=== PATIENT | male | born 1990 | race Caucasian/White ===

== ENCOUNTER → 2019-06-21 14:50 | Outpatient (CLI) | payer OTHER, SELFPAY ==
[2019-06-21 18:15] LABS: Chlamydia Trachomatis by PCR Negative (Negative); Neisserai gonorrhoeae by PCR Negative (Negative); Probe Check PASS; Sample Adequacy Control PASS; Specimen Processing Control PASS
[2019-06-21 18:16] LABS: Probe Check PASS; Sample Adequacy Control PASS; Specimen Processing Control PASS; Trichomonas Vag DNA by PCR Negative (Negative)
== END ==
PROVIDERS: Family Provider Pediatrics; PCP Pediatrics; Referring Provider Family Medicine; Visit Provider Family Medicine
DX: R30.0 Dysuria (principal); Z20.2 Contact with and (suspected) exposure to infections with a predominantly sexual mode of transmission
CPT/HCPCS: 87086; 87088; 87210; 87491; 87591; 87661

== ENCOUNTER → 2019-07-08 18:33 | Outpatient (CLI) | payer OTHER, SELFPAY | PROVIDERS: Family Provider Family Medicine; PCP Family Medicine; Referring Provider Nurse Practitioner Adult Health; Visit Provider Nurse Practitioner Adult Health | DX: R30.0 Dysuria (principal) ==

== ENCOUNTER → 2019-07-23 14:12 | Outpatient (CLI) | payer OTHER, SELFPAY ==
--- NOTE | 2019-07-23 14:25 | US_ITS ---
STUDY: SCROTUM ULTRASOUND REASON FOR EXAM: Male, 28 years old. Testicular lump. TECHNIQUE: Ultrasound evaluation of the scrotum was performed with color Doppler and static valenzuela-scale imaging. COMPARISON: None. FINDINGS: RIGHT TESTICLE INTRATESTICULAR: There is a normal size of the right testicle. The right testicle measures 4.6 x 3.0 x 2.2 cm. There is a homogenous echotexture. There is normal arterial and normal venous vascularity. There is no demonstrated right testicular mass or cyst. EXTRATESTICULAR: The epididymis is normal in size. The epididymis head measures 0.8 x 1.2 x 1.1 cm. There is normal vascularity of the epididymis. There is no demonstrated epididymal cystic structure. There is a small hydrocele. There is no demonstrated varicocele. There is no demonstrated extratesticular mass or cyst. The right testicular wall measures 0.3 cm. LEFT TESTICLE INTRATESTICULAR: There is a normal size of the left testicle. The left testicle measures 4.4 x 2.9 x 2.3 cm. There is a homogenous echotexture. There is normal arterial and normal venous vascularity. There is no demonstrated left testicular mass or cyst. The left testicular wall measures 0.4 cm. EXTRATESTICULAR: The epididymis is normal in size. The epididymis head measures 0.7 x 1.3 x 0.9 cm. There is normal vascularity of the epididymis. There is no demonstrated epididymal cystic structure. There is a small hydrocele. There is no demonstrated varicocele. There is no demonstrated extratesticular mass or cyst. US/Testicular with Arterial Flow IMPRESSION: Mild bilateral small hydroceles. No evidence of intratesticular mass. Normal symmetrical color flow within the testis. Electronically Signed: Allyson Warner MD at 4:52 EST , Service support ,
== END ==
PROVIDERS: Family Provider Family Medicine; PCP Family Medicine; Referring Provider Family Medicine; Visit Provider Family Medicine
DX: N43.3 Hydrocele, unspecified (principal)
CPT/HCPCS: 76870; 93976

== ENCOUNTER 2019-12-12 18:42 | Emergency (ER) | payer OTHER, SELFPAY ==
[2019-12-12] VITALS (8 sets, daily range): BP systolic 125–156; BP diastolic 66–107; PULSE 72–115; RESP 16–22; TEMP 36.6–36.9; O2SAT 93–99; BMI 26.6
--- NOTE | 2019-12-12 19:11 | ED.DCSUM_ITS ---
History of Present Illness Chief Complaint: Foreign Body Informant: Patient Onset: Hours - 1 Context: Sudden Onset - swallowing a piece of steak Timing: Continuous Quality: stuck [facility] Current Severity: Moderate Maximum Severity: Moderate Worsened by: trying to drink -- vomits Relieved by: nothing. tried cola. Narrative: Patient has had food feel like it got stuck in his esophagus on the way down, and the area that is affected now, in the past but he has never had anything stuck to the point where it would not eventually pass, like he has today while he was eating steak. The last time he vomited he saw a slight streak of blood. He has had nosebleeds off and on this winter. Past Medical History - Allergies and Home Meds Allergies/Adverse Reactions: Allergies Penicillins [PCN] Allergy (Verified 12/12/19 18:47) Hives Sulfa (Sulfonamide Antibiotics) Allergy (Verified 12/12/19 18:47) Hives Primary Care Physician: Dereck Roy MD [STAFF PHYSICIAN] - (as directed) Past Medical History: None Smoking Status: Never smoker Review of Systems General: Denies: Chills, Fever, Sweats ENT: Denies: Rhinorrhea, Sore throat Cardiovascular: Reports: Chest pain - See HPI Respiratory: Denies: Dyspnea, Cough, Dyspnea on exertion Gastrointestinal: Reports: Vomiting. Denies: Nausea, Diarrhea Skin: Denies: Rash, Wounds Neurological: Denies: Headache, Weakness, Numbness Physical Exam Vital Signs/Narrative: Vital Signs Temp Pulse Resp BP Pulse Ox 12/12/19 18:43 97.8 F 115 H 20 H 156/107 H 99 Inital Vital Signs reviewed: Yes General: Well nourished, Well developed, No Acute Distress Head: Normocephalic, Atraumatic Eyes: Perrl, EOMI ENT: Moist mucous membranes, No rhinorrhea, - - Posterior oropharynx clear. There is a spot of blood at Kesselbach's plexus in the right naris, with evidence of recent bleeding but nothing active. Left naris is clear. Neck: Supple, Nontender Cardiovascular: Regular rate, Regular rhythm, No murmurs Respiratory: No distress, CTA bilaterally, Chest nontender Abdomen: Soft, Nontender, Nondistended, Normal bowel sounds Skin: Normal color, No rash, No Trauma Neurological: Alert, Oriented x3, Cranial nerves II-XII grossly intact, Normal Strength, Normal Sensation, Normal Gait Psychological: Normal affect, Normal Mood Diagnostic/Tx/Re-eval Clinical Impression(s) from Imaging Studies Chest X-Ray 12/12/19 20:05 IMPRESSION: Normal x-ray examination of the chest. Electronically Signed: Beckie Kaplan MD at 20:33 EDT Tel , Service support , - Medical Decision Making Patient was given cola to try to drink by the nurses prior to my evaluation, he vomited it up promptly. There was no blood in his emesis. I reassured him that he appears to have a small area in the right naris that was probably the source of blood, and there is no active bleeding there. He was given a tissue to put in his nose to help apply pressure for now. He was treated with glucagon 1 mg IM, and observed for a period of time since his airway is patent and he is in no distress, tolerating this relatively well. However, he failed this and continued to vomit when attempting to drink carbonated beverage, and continuing to feel the sensation of foreign body in his esophagus in the same place. The surgeon on-call for unassigned Dr. Stevens does not do endoscopy. Discussed with Dr. Roy. He preferred to do the endoscopy in the operating room, which was arranged and the patient was taken to the operating room suite after placing an IV and starting some fluid. His chest x-ray was unremarkable. ED Disposition - Plan for ED Patient: Diagnosis: Esophageal foreign body Instructions: ED Foreign Body Esophageal Rslv Referrals: Dereck Roy MD [STAFF PHYSICIAN] - (as directed)
[2019-12-12] MEDS: Glucagon 1 MG/ML Syringe IM (19:18)
--- NOTE | 2019-12-12 20:05 | RAD_ITS ---
STUDY: X-RAY CHEST REASON FOR EXAM: Male, 29 years old. STEAK CAUGHT IN THROAT. Difficulty managing saliva. UNABLE TO DRINK THE COLA TECHNIQUE: Portable chest. COMPARISON: None. FINDINGS: The lungs are clear and expanded. There is no demonstrated pleural abnormality. Normal size heart. Normal mediastinum and shankar. Normal visualized pulmonary arteries. Normal visualized aortic arch and descending thoracic aorta. Normal visualized thoracic spine. Normal visualized ribs, clavicles, and shoulders. There is no demonstrated abnormality of the visualized soft tissue structures of the upper abdomen. RAD/Chest 1 View (Portable) IMPRESSION: Normal x-ray examination of the chest. Electronically Signed: Beckie Kaplan MD at 20:33 EDT Tel , Service support ,
--- NOTE | 2019-12-12 21:31 | HP.PCM_ITS ---
Problem List (1) Esophageal foreign body Status: Acute Qualifiers: Encounter type: initial encounter Qualified Code(s): T18.108A - Unspecified foreign body in esophagus causing other injury, initial encounter Surgical / Procedure Criteria Criteria Note: On 11/30/2019 the [place] Department of Health ([facility]) Public Order signed by [facility] Director Maeve Payne M.D., regarding the Management of Non-Essential Surgeries and Procedures for the purpose of preserving Personal Protective Equipment (PPE) and critical hospital capacity and resources within [place] went into effect as of 12/01/2019 at 5:00PM. According to the [facility] Public Order: This action will remain in full force and effect until the State of Emergency declared by the Governor no longer exists or the Director of the [facility] rescinds or modifies this Order. This [facility] order stated all non-essential or elective surgeries and procedures that utilize PPE should be delayed unless there is undue risk to the current or future health of a patient. After reviewing the aforementioned [facility] Public Order and the patients clinical case, I have determined that the scheduled procedure meets the criteria to go forward. Identified Procedure Criteria: Threat of permanent dysfunction of an extremity or organ system - Patient has a foreign body in his esophagus History of Present Illness Date of Admission: 12/12/19 The patient is a 29 year old M Patient has had food feel like it got stuck in his esophagus on the way down, and the area that is affected now, in the past but he has never had anything stuck to the point where it would not eventually pass, like he has today while he was eating steak. The last time he vomited he saw a slight streak of blood. He has had nosebleeds off and on this winter. Past Medical History Allergies Penicillins [PCN] Allergy (Verified 12/12/19 18:47) Hives Sulfa (Sulfonamide Antibiotics) Allergy (Verified 12/12/19 18:47) Hives Home Medications: Ambulatory Orders Medication Instructions Recorded Multivitamin [Multiple Vitamins] 1 ea PO DAILY 12/12/19 Smoking Status: Never smoker - *Family History Maternal History Items: No pertinent history Review of Systems Constitutional: Denies: Chills, Fever, Weight Change Cardiovascular: Denies: Chest Pain, Chest Pressure, Chest Tightness, Palpitations Respiratory: Denies: Cough, Hemoptysis, Shortness of breath at rest, Shortness of breath upon exertion, Wheezing Gastrointestinal: Denies: Abdominal Pain, Constipation, Diarrhea, Hematemesis, Nausea, Melena, Vomiting VTE Information - Inpt Only VTE Present on Admission: No VTE Mechan Device Prophylaxis: None VTE Pharm Prophylaxis ordered?: No Reason prophylaxis not ordered:: Treatment Not Indicated - Physical Exam Vitals/I&O's: Vital Signs Temp Pulse Resp BP Pulse Ox 97.8 F 82 20 H 138/93 H 98 12/12/19 18:43 12/12/19 20:53 12/12/19 20:53 12/12/19 20:53 12/12/19 20:53 Oxygen Flow Rate (L/min) 2 Oxygen Delivery Method Nasal Cannula Weight: 191 lb Body Mass Index (BMI) 26.6 Lungs: Clear to auscultation Cardiovascular: Regular rate, Regular Rhythm, No murmurs Abdomen: Bowel Sounds Present, Soft, Non Tender, Non-Distended Assessment/Plan All Active Problems Esophageal foreign body (Acute) Plan will be to perform an upper endoscopy on the patient. Hopefully we will be able to push this piece of deer meat through into his stomach. Wrist benefits include bleeding infection possible injury to the esophagus have been reviewed with the patient the patient agrees to proceed.
--- NOTE | 2019-12-12 21:38 | OP.EGD_ITS ---
Patient Name: Leonidas Lechuga Procedure Date: 12/12/2019 9:11 PM Date of : 1990 Age: 29 Procedure: Upper GI endoscopy Indications: Foreign body in the esophagus Providers: Dereck Roy MD Medicines: See the Anesthesia note for documentation of the administered medications Patient Profile: This is a 29 year old male. Refer to note in patient chart for documentation of history and physical. Complications: No immediate complications. Procedure: Pre-Anesthesia Assessment: - Prior to the procedure, a History and Physical was performed, and patient medications and allergies were reviewed. The patient's tolerance of previous anesthesia was also reviewed. The risks and benefits of the procedure and the sedation options and risks were discussed with the patient. All questions were answered, and informed consent was obtained. Prior Anticoagulants: The patient has taken no previous anticoagulant or antiplatelet agents. ASA Grade Assessment: II - A patient with mild systemic disease. After reviewing the risks and benefits, the patient was deemed in satisfactory condition to undergo the procedure. After obtaining informed consent, the endoscope was passed under direct vision. Throughout the procedure, the patient's blood pressure, pulse, and oxygen saturations were monitored continuously. The gastroscope was introduced through the mouth, and advanced to the second part of duodenum. The upper GI endoscopy was accomplished without difficulty. The patient tolerated the procedure well. Scope In: 9:26:31 PM Scope Out: 9:28:10 PM Total Procedure Duration Time 0 hours 1 minute 39 seconds Findings: The examined esophagus was normal. With just air being compressed into the esophagus this food bolus passed easily into the stomach with no injury to the distal esophagus. A large amount of food (residue) was found in the entire examined stomach. The examined duodenum was normal. No biopsies or other specimens were collected for this exam. Impression: - Normal esophagus. The mucosa looked normal and there was no signs of any injury to the distal esophagus. - A large amount of food (residue) in the stomach. - Normal examined duodenum. No specimens collected. Recommendation: - Discharge patient to home. - Resume previous diet. - Continue present medications. - Await pathology results. - Repeat upper endoscopy (date not yet determined) for surveillance. - Return to primary care physician (date not yet determined). Procedure Code(s): --- Professional --- 59963, Esophagogastroduodenoscopy, flexible, transoral; diagnostic, including collection of specimen(s) by brushing or washing, when performed (separate procedure) Diagnosis Code(s): --- Professional --- T18.108A, Unspecified foreign body in esophagus causing other injury, initial encounter CPT copyright 2017 [employer]. All rights reserved. The codes documented in this report are preliminary and upon data coder operator review may be revised to meet current compliance requirements. MD Dereck Rodriguez MD 12/12/2019 9:37:51 PM This report has been signed electronically. Number of Addenda: 0 Note Initiated On: 12/12/2019 9:11 PM
--- NOTE | 2019-12-12 21:38 | OP.CCLET_ITS ---
12/12/2019 Randy Nguyen Md Re : Upper GI endoscopy procedure for Leonidas Lechuga Dear Wendy This procedure was performed on Thursday, December 12, 2019. My impressions and recommendations are as follows: Impressions : - Normal esophagus. The mucosa looked normal and there was no signs of any injury to the distal esophagus. - A large amount of food (residue) in the stomach. - Normal examined duodenum. No specimens collected. Recommendations : - Discharge patient to home. - Resume previous diet. - Continue present medications. - Await pathology results. - Repeat upper endoscopy (date not yet determined) for surveillance. - Return to primary care physician (date not yet determined). My findings are described in the full procedure note, which is enclosed. If I can be of further assistance, please feel free to contact me at Doctor phone number(s): , Fax: [phone], Work: . Sincerely, MD Dereck Rodriguez MD 12/12/2019 9:37:51 PM This report has been signed electronically.
== END 2019-12-12 22:02 | disposition home or self-care (01) ==
PROVIDERS: Surgery; Emergency Provider Emergency Medicine; PCP Family Medicine
PROC: 0DJ08ZZ Inspection of Upper Intestinal Tract, Via Natural or Artificial Opening Endoscopic (ICD-10-PCS; CPT 43235; principal; 2019-12-12 21:00)
DX: T18.128A Food in esophagus causing other injury, initial encounter (principal); X58.XXXA Exposure to other specified factors, initial encounter
CPT/HCPCS: 43235; 71045; 96372; 99284; J1610

== ENCOUNTER → 2020-01-24 08:20 | Outpatient (CLI) | payer OTHER, SELFPAY ==
[2019-12-12 18:43] VITALS: BMI 26.6
--- NOTE | 2020-01-24 08:25 | RAD_ITS ---
STUDY: X-RAY - ESOPHAGUS (BARIUM SWALLOW) WITH FLUOROSCOPY REASON FOR EXAM: Male, 29 years old. Food getting stuck mid esoph TECHNIQUE: 17 view(s) of the esophagus were obtained following swallowing of barium. FLUOROSCOPY TIME (if supplied): (0:36) minutes/seconds COMPARISON: None. FINDINGS: There is no demonstrated esophageal foreign body. There is no demonstrated stricture or mucosal abnormality. Normal gastroesophageal junction, without a demonstrated hiatal hernia. The patient ingested a 12 mm tablet of barium without any difficulty. Normal visualized aortic arch and descending thoracic aorta. Normal visualized pulmonary parenchyma. Normal visualized osseous structures of the thorax. RAD/Esophagus Single Contrast IMPRESSION: Normal plain film x-ray examination (barium swallow) of the esophagus. Electronically Signed: Elia Parry, at 9:57 EDT , Service support ,
== END ==
PROVIDERS: PCP Family Medicine; Referring Provider Internal Medicine Gastroenterology; Visit Provider Internal Medicine Gastroenterology
DX: R13.10 Dysphagia, unspecified (principal)
CPT/HCPCS: 74220

== ENCOUNTER → 2020-10-25 08:41 | Outpatient (CLI) | payer OTHER, SELFPAY ==
[2019-12-12 18:43] VITALS: BMI 26.6
[2020-10-25 10:18] LABS: Hemoglobin 14.4 g/dL (13.0-16.5); Mean Corp Hgb Conc 31.3 g/dL (32-36); Mean Corpuscular Hgb 27.6 pg (27.0-32.0); Mean Corpuscular Volume 88.3 fL (80-94); Mean Platelet Vol. 11.8 fl (6.2-12.0); Platelet Count 214 K/mm3 (150-450); RBC Distribution Width CV 12.1 % (11.6-14.6); RBC Distribution Width SD 39.3 fl (35.1-43.9); Red Blood Count 5.21 M/mm3 (4.6-6.2); White Blood Count 6.7 K/mm3 (4.4-11.0)
[2020-10-25 11:03] LABS: ALB/GLOB Ratio 1.1 RATIO (0.9-2.4); AST(SGOT) 23 U/L (15-37); Alanine Aminotransfer ALT/SGPT 49 U/L (16-61); Alkaline Phosphatase 101 U/L (45-117); Anion Gap 6 (5-15); BUN 14 mg/dL (7-18); Calcium,Total 9.2 mg/dL (8.5-10.1); Chloride 105 mmol/L (98-107); Cholesterol 200 mg/dL (200); EST Glomerular Filtration Rate 63 mL/min (>60); Est Glom Filt Rate - Afr Amer 77 mL/min (>60); Globulin 3.7 g/dL (2.2-4.2); Glucose 97 mg/dL (74-106); High Density Lipoprotein 29 mg/dL; Protein, Total 7.7 g/dL (6.4-8.2); Sodium Level 138 mmol/L (136-145); Triglycerides 417 mg/dL
== END ==
PROVIDERS: PCP Family Medicine; Referring Provider Family Medicine; Visit Provider Family Medicine
DX: J45.20 Mild intermittent asthma, uncomplicated (principal); E66.3 Overweight; Z13.1 Encounter for screening for diabetes mellitus
CPT/HCPCS: 36415; 80053; 80061; 85027

== ENCOUNTER → 2021-04-10 08:56 | Outpatient (CLI) | payer OTHER, SELFPAY ==
[2019-12-12 18:43] VITALS: BMI 26.6
[2021-04-10 10:47] LABS: AST(SGOT) 26 U/L (15-37); Alanine Aminotransfer ALT/SGPT 61 U/L (16-61); Albumin, Serum 3.8 g/dL (3.2-5.0); Alkaline Phosphatase 77 U/L (45-117); Anion Gap 2 (5-15); BUN 12 mg/dL (7-18); BUN/Creat Ratio 10.3 RATIO (10-20); Calcium,Total 8.8 mg/dL (8.5-10.1); Chloride 107 mmol/L (98-107); Cholesterol 187 mg/dL (200); Creatinine, Serum 1.16 mg/dL (0.70-1.30); EST Glomerular Filtration Rate 78 mL/min (>60); Est Glom Filt Rate - Afr Amer 95 mL/min (>60); Globulin 3.8 g/dL (2.2-4.2); Glucose 97 mg/dL (74-106); High Density Lipoprotein 34 mg/dL; Potassium 4.2 mmol/L (3.5-5.1); Protein, Total 7.6 g/dL (6.4-8.2); Sodium Level 139 mmol/L (136-145); Triglycerides 185 mg/dL; Very Low Density Lipoprotein 37 mg/dL (5-40)
== END ==
PROVIDERS: PCP Family Medicine; Visit Provider Family Medicine
DX: E78.1 Pure hyperglyceridemia (principal)
CPT/HCPCS: 36415; 80053; 80061

== ENCOUNTER → 2022-04-23 | Outpatient (CLI) | payer BC, SELFPAY ==
[2022-04-23 12:21] LABS: Absolute Neutrophil Count 3.3 X10^3/uL (2.0-7.7); Basophil# 0.05 X10^3/uL; Basophil% 0.7 % (0-1); Eosinophil# 0.54 X10^3/uL; Eosinophils% 7.9 % (0-5); Hematocrit 45.5 % (40-54); Hemoglobin 15.1 g/dL (13.0-16.5); Lymphocyte % 36.4 % (19-41); Mean Corp Hgb Conc 33.2 g/dL (32-36); Mean Corpuscular Hgb 28.5 pg (27.0-32.0); Mean Platelet Vol. 11.5 fl (6.2-12.0); Monocyte# 0.41 X10^3/uL; NRBC Flagged by Analyzer 0 % (0-5); Neutrophil # 3.33 X10^3/uL (2.7-7.7); Neutrophil % 48.6 % (47-70); Platelet Count 219 K/mm3 (150-450); RBC Distribution Width CV 12.2 % (11.6-14.6); RBC Distribution Width SD 38.5 fl (35.1-43.9); Red Blood Count 5.29 M/mm3 (4.6-6.2); White Blood Count 6.9 K/mm3 (4.4-11.0)
[2022-04-23 12:40] LABS: AST(SGOT) 26 U/L (15-37); Alanine Aminotransfer ALT/SGPT 50 U/L (16-61); Albumin, Serum 3.9 g/dL (3.2-5.0); Alkaline Phosphatase 76 U/L (45-117); Anion Gap 5 (5-15); BUN 17 mg/dL (7-18); BUN/Creat Ratio 13.1 RATIO (10-20); Calcium,Total 9.3 mg/dL (8.5-10.1); Chloride 106 mmol/L (98-107); Cholesterol 193 mg/dL (200); EST Glomerular Filtration Rate 68 mL/min (>60); Est Glom Filt Rate - Afr Amer 83 mL/min (>60); Glucose 91 mg/dL (74-106); High Density Lipoprotein 33 mg/dL; Potassium 4.2 mmol/L (3.5-5.1); Protein, Total 7.9 g/dL (6.4-8.2); Sodium Level 138 mmol/L (136-145); Triglycerides 223 mg/dL; Very Low Density Lipoprotein 45 mg/dL (5-40); Vitamin B12 268 pg/mL (211-911)
[2022-04-23 13:09] LABS: Hemoglobin A1c 5.6 % (3.8-5.6)
== END | disposition home or self-care (01) ==
LOC: MFPLAB 10:25
PROVIDERS: PCP Family Medicine; Referring Provider Family Medicine; Visit Provider Family Medicine
DX: Z00.00 Encounter for general adult medical examination without abnormal findings (principal); K20.0 Eosinophilic esophagitis; Z13.220 Encounter for screening for lipoid disorders; Z13.1 Encounter for screening for diabetes mellitus
CPT/HCPCS: 36415; 80053; 80061; 82607; 83036; 85025

== ENCOUNTER → 2022-07-23 | Outpatient (CLI) | payer BC, SELFPAY ==
[2022-07-31 15:08] LABS: Alternaria alternata <0.10 kU/L (Class 0); Aspergillus fumigatus <0.10 kU/L (Class 0); Bahia Grass 0.93 kU/L (Class II); Bermuda Grass <0.10 kU/L (Class 0); Cedar, Mountain <0.10 kU/L (Class 0); Cladosporium herbarum <0.10 kU/L (Class 0); Cockroach, American <0.10 kU/L (Class 0); Elm, American White 0.33 kU/L (Class I); Johnson Grass 0.17 kU/L (Class 0/I); Maple/Box Elder <0.10 kU/L (Class 0); Mucor racemosus <0.10 kU/L (Class 0); Mugwort 0.18 kU/L (Class 0/I); Penicillium chrysogen <0.10 kU/L (Class 0); Pigweed, Rough <0.10 kU/L (Class 0); Plantain, English 0.21 kU/L (Class 0/I); Ragweed, Short/Common 5.55 kU/L (Class IV); Sheep Sorrel(Dock) <0.10 kU/L (Class 0)
== END | disposition home or self-care (01) ==
PROVIDERS: PCP Family Medicine; Referring Provider Family Medicine; Visit Provider Family Medicine
DX: J45.909 Unspecified asthma, uncomplicated (principal)
CPT/HCPCS: 36415; 86003

== ENCOUNTER → 2022-11-30 | Outpatient (CLI) | payer BC, SELFPAY ==
--- NOTE | 2022-11-30 10:37 | MRI_ITS ---
STUDY: MRI LEFT ANKLE WITHOUT CONTRAST REASON FOR EXAM: Male, 32 years old. pain fx''d ankle 2 years ago,, still has medial ankle pain TECHNIQUE: Standardized fat and water weighted pulse sequences were obtained in all 3 orthogonal planes. COMPARISON: X-ray of the left ankle dated November 08, 2022 FINDINGS: An old displaced fracture deformity at the undersurface of the medial malleolus is present with corticated displaced ossicle. There are no visualized acute fractures. No marrow edema or osteochondral defects are seen. No ankle joint effusion is present. There is mild thickening and intrasubstance signal abnormality of the Achilles tendon consistent with mild Achilles tendinosis. Normal subcutis adipose space. There is mild tenosynovitis of the posterior tibialis tendon sheath with an intrinsic normal tendon. Normal flexor digitorum longus tendon. Normal flexor hallucis longus tendon. Normal peroneus longus and brevis tendons. Normal tibialis anterior tendon. Normal extensor hallucis longus tendon. Normal extensor digitorum longus tendons. Normal plantar fascia. Normal plantar calcaneal tubercles. Normal intrinsic muscles of the rearfoot. Normal distal tibiofibular syndesmotic ligamentous complex. There is scarring with thickening of the anterior talofibular ligament consistent with a remote sprain. Normal subtalar ligaments and sinus tarsi. Normal deltoid ligamentous complexes. Normal plantar calcaneonavicular (spring) ligament. Normal tibiotalar articulation. Normal talar dome. Normal subtalar articulations. Normal talonavicular articulation. Normal calcaneocuboid articulation. Normal navicular-cuneiform articulations. MRI/Lower Ext Joint Only (Routine) IMPRESSION: 1. Mild posterior tibialis tenosynovitis 2. An old displaced fracture deformity at the undersurface of the medial malleolus is present with corticated displaced ossicle. There are no visualized acute fractures. No marrow edema or osteochondral defects are seen. No ankle joint effusion is present. 3. There is scarring with thickening of the anterior talofibular ligament consistent with a remote sprain Electronically Signed: Elliott Guido MD at 15:03 EDT ,
== END | disposition home or self-care (01) ==
PROVIDERS: PCP Family Medicine; Referring Provider Physician Assistant; Visit Provider Physician Assistant
DX: M25.572 Pain in left ankle and joints of left foot (principal); M25.372 Other instability, left ankle; G89.29 Other chronic pain
CPT/HCPCS: 73721

== ENCOUNTER 2023-01-24 15:00 | Outpatient (RCR) | payer BC, SELFPAY ==
--- NOTE | 2022-12-13 16:41 | HP.PTEVAL ---
Patient's Visit Information LYDIA ENCARNACION is a 32 year old M referred to Physical Therapy by TABITHA Wolfe with a diagnosis of INSTABILITY ,LEFT ANKLE,LEFT ANKLE PAIN,SYNOVITIS/TENOSYNOVITIS. Date of Evaluation: 12/13/22 Physical Therapist: Jeremy Crockett, PT, Cert MDT, OCS - Visit Plan Frequency: 2x /Week Duration: 4 Weeks Plan: PT INTERVENTIONS FLEXABLITY CALF ,ECCENTRICS G-S,STRENGTHENING ANKLE STABILIZERS , PROPRIOCEPTION AND MODALTIES PRN - Subjective This 32 y/o male presents to physical therapy with left ankle pain. Patient has had left ankle pain for ~ 8years ago basketball ,then ~ 2years ago playing softball twisted ankle. Patient continues to have pain and edema in left ankle. Patient seen DR recommended PT . Patient had MRI showed old fracture deformity of malleolus ,thickening of anterior talofibular ligament ,posterior tendonitis. Possible need surgery ,but patient wants to avoid. 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 RTD after PT . 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 Alleviating factors ice. Patient denies paresthesia/tingling . Patient sleeping good at night,. SOCAIL: . 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 GAIT: reciprocal pattern. PALPATION: tender Achilles tendon. NEURO: intact. AROM: dorsiflexion 10 degrees ,plantar flexion 65 degrees ,eversion 10 degrees ,inversion 45 degrees. MMT: ankle stabilizers 4/5. PROPRIOCEPTION: intact. + anterior drawer laxity - Balance/Special Test Scores Lower Extremity Functional Score: 51 - Goals Goal 1:: Patient to be I with HEP ankle Goal Time Frame: 4-6 Weeks Goal 2:: Patient to demonstrate 60% improvement with less pain and improved function Goal Time Frame: 4-6 Weeks Goal 3:: Patient to improve proprioception to minimize chronic pain and sprains. Goal Time Frame: 4-6 Weeks Goal 4:: Patient to improve LFES score by 5 -10 points to improve QOL and function Goal Time Frame: 4-6 Weeks - Rehabilitation Potential Physical Therapy Diagnosis: Patient has chronic ankle pain with MRI showed old fracture medial malleolus ,ATFL thickening with current impairments with pain ,intermittent edema ,weakness with decrease proprioception with inability with running thus benefit from skilled PT Rehabilitation Potential: Good - Anticipated Interventions Patient/Client Instruction: Educate patient on: Condition, Plan of Care For the Purpose of:: To decrease pain, To increase ROM, To improve muscle performance and motor function, To improve ability to perform ADL's, To increase tolerance to activity/condition/position, To improve ability of physical actions for home/community/work/leisure, To improve health of tissue, To decrease soft tissue restriction, To prevent re-injury Therapeutic Exercise to Include: Strength training, Power training, Endurance training, Balance training, Flexibilty training, Active ROM Comment: ANKLE For the Purpose of:: To decrease pain, To increase ROM, To improve muscle performance and motor function, To improve ability to perform ADL's, To increase tolerance to activity/condition/position, To improve ability of physical actions for home/community/work/leisure, To improve health of tissue, To decrease soft tissue restriction, To increase flexibility/ROM, To prevent re-injury TENS: Yes IF ES: Yes Cryotherapy (ice pack, ice massage): Yes Ultrasound (thermal/non thermal): Yes For the Purpose of:: To decrease pain, To increase ROM, To improve health of tissue, To decrease soft tissue restriction Thank you for the opportunity to evaluate your patient. For Medicare and Medicare HMO plans, please review the plan of care and approve it. It will need to be FAXED BACK to us at [phone] for Medicare purposes. For Medicare only, by signing this I certify the plan of care. Please let me know if there are questions or concerns regarding this plan of care. Physician Signature: Date:
--- NOTE | 2023-04-13 17:50 | HP.PTDCSUM ---
Discharge Summary D/C summary: It has been my pleasure to treat LYDIA ENCARNACION referred by TABITHA Wolfe, with the diagnosis of INSTABILITY ,LEFT ANKLE,LEFT ANKLE PAIN,SYNOVITIS/TENOSYNOVITIS for a total of 2 visit(s). Discharge Date: Please see the following information for a summary of their discharge status. Subjective Subjective: Patient states doing alot better Pain Left: Pain Intensity (Out of 10): 1 Overall Improvement % Improvement: 75 Objective Objective/Function: Did well with progression of strengthening and proprioception provided hand out progression for HEP Goals Goal 1:: Patient to be I with HEP ankle Goal 2:: Patient to demonstrate 60% improvement with less pain and improved function Goal 3:: Patient to improve proprioception to minimize chronic pain and sprains. Goal 4:: Patient to improve LFES score by 5 -10 points to improve QOL and function Plan Plan: D/C D/C Information d/c sentence: If there are questions or concerns regarding this patient's physical therapy, please feel free to call me at [phone]. Thank you for the referral of this patient. Sincerely, Jeremy Crockett, PT, Cert MDT, OCS Balance/Gait/Functional tests Balance/Special Test Scores Lower Extremity Functional Score: 76
== END 2023-01-24 19:00 | disposition home or self-care (01) ==
LOC: PT 15:00
PROVIDERS: PCP Family Medicine; Referring Provider Physician Assistant; Visit Provider Physician Assistant
DX: M25.372 Other instability, left ankle (principal); M25.572 Pain in left ankle and joints of left foot; G89.29 Other chronic pain; M65.9 Synovitis and tenosynovitis, unspecified
CPT/HCPCS: 97110; 97162

== ENCOUNTER → 2024-12-02 | Outpatient (CLI) | payer BC, SELFPAY ==
[2024-12-02 17:10] LABS: Absolute Lymphocyte Count 2.13 X10^3/uL (0.83-4.51); Basophil# 0.04 X10^3/uL; Basophil% 0.6 % (0-1); Eosinophil# 0.31 X10^3/uL; Eosinophils% 4.4 % (0-5); Hematocrit 45.8 % (40-54); Lymphocyte # 2.13 X10^3/ul (0.83-4.51); Lymphocyte % 30.5 % (19-41); Mean Corp Hgb Conc 32.8 g/dL (32-36); Mean Corpuscular Hgb 27.9 pg (27.0-32.0); Mean Corpuscular Volume 85.1 fL (80-94); Mean Platelet Vol. 10.8 fl (6.2-12.0); Monocyte# 0.52 X10^3/uL; Monocyte% 7.4 % (0-10); NRBC Flagged by Analyzer 0 % (0-5); Neutrophil # 3.97 X10^3/uL (2.7-7.7); Neutrophil % 56.8 % (47-70); Platelet Count 231 K/mm3 (150-450); RBC Distribution Width CV 12.4 % (11.6-14.6); RBC Distribution Width SD 38.3 fl (35.1-43.9); Red Blood Count 5.38 M/mm3 (4.6-6.2)
[2024-12-02 20:34] LABS: Hemoglobin A1c 5.6 % (<=5.6)
[2024-12-02 21:15] LABS: ALB/GLOB Ratio 1.4 RATIO (0.9-2.4); AST(SGOT) 24 U/L (<=37); Alanine Aminotransfer ALT/SGPT 41 U/L (<=46); Albumin, Serum 4.6 g/dL (3.5-5.0); Alkaline Phosphatase 89 U/L (40-129); Anion Gap 12 (5-15); BUN 14 mg/dL (4-19); BUN/Creat Ratio 11.8 RATIO (10-20); Calcium,Total 9.7 mg/dL (7.6-11.0); Carbon Dioxide 24.2 mmol/L (21.0-32.0); Chloride 102 mmol/L (98-108); Cholesterol 195 mg/dL (<=200); Creatinine, Serum 1.14 mg/dL (0.70-1.20); EST Glomerular Filtration Rate 87 (>60); Globulin 3.4 g/dL (2.2-4.2); Glucose 93 mg/dL (70-99); High Density Lipoprotein 33 mg/dL; Low Density Lipoprotein Calc. 84 mg/dL; Potassium 4.2 mmol/L (3.3-5.1); Sodium Level 138 mmol/L (133-145); Triglycerides 395 mg/dL; Very Low Density Lipoprotein 79 mg/dL (5-40); Vitamin B12 507 pg/mL (180-914)
== END | disposition home or self-care (01) ==
LOC: VSLAB 15:59
PROVIDERS: PCP Family Medicine; Visit Provider Family Medicine
DX: E53.8 Deficiency of other specified B group vitamins (principal); Z13.6 Encounter for screening for cardiovascular disorders; Z13.228 Encounter for screening for other metabolic disorders
CPT/HCPCS: 36415; 80053; 80061; 82607; 83036; 84443; 85025